=== PATIENT | female | born 1980 | race Caucasian/White ===

== ENCOUNTER 2016-07-01 23:20 | Emergency (ER) | payer OTHER ==
[2016-07-02] MEDS ORDERED: Clindamycin CAP* 150 MG PO ONE ×3 (01:04→03:21)
[2016-07-02] MEDS ORDERED: Clindamycin 600 MG IVPREMIX(* 600 MG/50 ML SDV IV ONE (01:13)
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
[2016-07-02 03:39] LABS: Hematocrit 30 % (35-47); Hemoglobin 9.7 g/dl (12.0-16.0); Mean Corpuscular HGB Conc 33 g/dl (31-36); Mean Corpuscular Hemoglobin 26 pg (27-31); Mean Corpuscular Volume 80 fL (80-97); Mean Platelet Volume 10 um3 (7.4-10.4); Red Blood Count 3.73 10^6/ul (4.0-5.4); Red Cell Distribution Width 15 % (10.5-15); White Blood Count 7.9 10^3/ul (3.5-10.8)
[2016-07-02 03:54] LABS: ALT 7 U/L (7-52); Albumin 3.4 g/dL (3.2-5.2); Alkaline Phosphatase 87 U/L (34-104); BUN/Creatinine Ratio 15.1 (8-20); Blood Urea Nitrogen 11 mg/dL (6-24); CO2 Carbon Dioxide 24 mmol/L (22-32); Calcium 9.3 mg/dL (8.6-10.3); Chloride 99 mmol/L (101-111); EGFR African American 116.7 (>60); EGFR Non-African American 90.7 (>60); Globulin 4.1 g/dL (2-4); Glucose 109 mg/dL (70-100); Sodium 132 mmol/L (133-145); Total Protein 7.5 g/dL (6.4-8.9)
[2016-07-02 04:16] VITALS: BP 115/83
--- NOTE | 2016-07-03 09:31 | PN ---
Progress Note - Progress Note Note: MRSA- Staph + Patient placed on Clindamycin Clindamycin covers pathogen. Will await sensitivities. Nothing further at this time. Jessica Salcido PA-C
--- NOTE | 2016-07-05 09:06 | PN ---
Progress Note - Progress Note Note: Patient discharged on Clindamycin for abscess/cellulitis. Culture was MRSA - and Staph +. Sensitivity results show resistance to Clindamycin. Patient called at 9:05am and will switch to Bactrim as it was a better choice and showed sensitivity. Patient agrees with plan. Aware of worsening signs and symptoms. Follow-up with pcp encouraged. Also encouraged to take probiotics in between antibiotic doses. No further action needed at this time.
== END 2016-07-02 04:15 | disposition home or self-care (01) ==
LOC: ED 23:20
DX: L02.414 Cutaneous abscess of left upper limb (principal); L03.116 Cellulitis of left lower limb; F11.20 Opioid dependence, uncomplicated
CPT/HCPCS: 10060; 36415; 80053; 85025; 86703; 86803; 87070; 87077; 87186; 87205; 87640; 87641; 99283; A9270-GY